=== PATIENT | female | born 1960 | race Caucasian/White ===

== ENCOUNTER → 2017-10-21 | Outpatient (CLI) | payer MEDICAID, OTHER ==
[~2017-10-21] MED LIST: AMLO10TA2 PO; BENA20TA2 PO; CARI350T14 PO; CEFD300C37 PO; CYCL-259 PO; DULO60CA7 PO; FLUT15.88 NS; FURO40TA6 PO; GABA-827 PO; GABA600T2 PO; MECL-76 PO; METF500T4 PO; METH750T2 PO; MORP15TA PO; MORP15TA3 PO; MORP30TA3 PO; MORP60TA PO; NABU750T PO; POTA20TA14 PO; POTASSIUM; PRED5TAB PO; REGADENOSON 0.4 MG/5 ML SYRINGE ONE; RIVA10TA PO; WARF5TAB7 PO
== END | disposition home or self-care (01) ==
LOC: CVU 10:55
PROVIDERS: ATTEND Internal Medicine Cardiovascular Disease
DX: Z01.810 Encounter for preprocedural cardiovascular examination (principal); I07.1 Rheumatic tricuspid insufficiency; I10 Essential (primary) hypertension; E11.9 Type 2 diabetes mellitus without complications
CPT/HCPCS: 78452; 93017; 93306; A9502; J2785

== ENCOUNTER 2017-11-25 17:31 | Emergency (ER) | payer OTHER ==
[~2017-11-25] VITALS: Ht 160 cm; Wt 100.0 kg
[~2017-11-25 17:31] MED LIST changes: -REGADENOSON 0.4 MG/5 ML SYRINGE ONE
[2017-11-25] MEDS ORDERED: ONDANSETRON 2MG/ML, 2ML ONE (18:26)
[2017-11-25] MEDS ORDERED: MORPHINE SULFATE 4 MG/ML, 1ML ONE (18:26)
[2017-11-25] MEDS ORDERED: MORPHINE SULFATE 4 MG/ML, 1ML IVPush PRN (18:30)
[2017-11-25] MEDS ORDERED: ONDANSETRON 2MG/ML, 2ML IVPush ONE (18:30)
[2017-11-25] MEDS ORDERED: SODIUM CHLORIDE FLUSH 10ML SYR IVF ONE (18:30)
[2017-11-25 18:35] LABS: BASOPHILS % (AUTO) 0 % (0-1); EOSINOPHILS # (AUTO) 0.11 x10^3/uL (0-0.4); EOSINOPHILS % (AUTO) 1 % (1-7); LYMPHOCYTES # (AUTO) 1.52 x10^3/uL (1-3.4); LYMPHOCYTES % (AUTO) 18 % (22-44); MD NO; MEAN CORPUSCULAR HEMOGLOBIN 32.2 pg (27.0-34.8); MEAN CORPUSCULAR HGB CONC 33.4 g/dL (32.4-35.8); MEAN CORPUSCULAR VOLUME 96.2 fL (80-100); MEAN PLATELET VOLUME 9.9 fL (7.4-10.4); MONOCYTES # (AUTO) 0.37 x10^3/uL (0.2-0.8); MONOCYTES % (AUTO) 4 % (2-9); NEUTROPHILS # (AUTO) 6.33 x10^3/uL (1.8-6.8); NEUTROPHILS % (AUTO) 76 % (42-75); PLATELET COUNT 221 x10^3/uL (130-400); RED BLOOD COUNT 4.69 x10^6/uL (3.82-5.3); RED CELL DISTRIBUTION WIDTH 14.9 % (9.6-15.2)
[2017-11-25 18:43] LABS: INTERNATIONAL NORMALIZED RATIO 1.97 (0.93-1.1)
[2017-11-25 18:45] LABS: ALBUMIN 3.6 g/dL (3.4-5.0); ANION GAP 9 mmol/L (5-15); CALCIUM 8.8 mg/dL (8.5-10.1); CHLORIDE 108 mmol/L (98-107); CREATININE 1.17 mg/dL (0.55-1.02)
[2017-11-25 19:00] LABS: PROTHROMBIN TIME 20.2 Seconds (9.6-11.5)
[2017-11-25 20:51] VITALS: BP 118/72
== END 2017-11-25 20:54 | disposition home or self-care (01) ==
LOC: ED 20:06
DX: S70.01XA Contusion of right hip, initial encounter (principal); M47.896 Other spondylosis, lumbar region; G89.11 Acute pain due to trauma; E87.5 Hyperkalemia; I10 Essential (primary) hypertension; E11.9 Type 2 diabetes mellitus without complications; J44.9 Chronic obstructive pulmonary disease, unspecified; M54.5 Low back pain; Z86.718 Personal history of other venous thrombosis and embolism; Z79.01 Long term (current) use of anticoagulants
CPT/HCPCS: 36415; 72192; 80048; 82040; 85025; 85610; 85730; 96374; 96375; 99285; J2405

== ENCOUNTER 2018-09-07 14:02 | Observation (INO) | payer OTHER ==
[~2018-09-07] VITALS: Ht 160 cm; Wt 115.7 kg
[~2018-09-07 14:02] MED LIST changes: -AMLO10TA2 PO; +AMLO10TA6 PO; -BENA20TA2 PO; +BENA20TA4 PO; +METF500T17 PO; -METF500T4 PO; +WARF-36 PO; -WARF5TAB7 PO
--- NOTE | 2018-09-07 15:04 | NUR ---
pt transferred to room 24 via WC
--- NOTE | 2018-09-07 15:16 | NUR ---
REPORT FROM ELMIRA PERLA RN. ASSUMED CARE OF PATIENT AT THIS TIME.
[2018-09-07] MEDS ORDERED: ONDANSETRON 2MG/ML, 2ML IVPush ONE (15:30)
[2018-09-07] MEDS ORDERED: MORPHINE SULFATE 4 MG/ML, 1ML IVPush PRN (15:30)
[2018-09-07] MEDS ORDERED: SODIUM CHLORIDE FLUSH 10ML SYR IVF ONE (15:30)
[2018-09-07] MEDS ORDERED: ONDANSETRON 2MG/ML, 2ML ONE (15:41)
[2018-09-07] MEDS ORDERED: MORPHINE SULFATE 4 MG/ML, 1ML ONE (15:41)
--- NOTE | 2018-09-07 16:00 | NUR ---
PATIENT TO XRAY VIA [facility].
[2018-09-07 16:15] LABS: BASOPHILS # (AUTO) 0.02 x10^3/uL (0-0.1); BASOPHILS % (AUTO) 0 % (0-1); EOSINOPHILS # (AUTO) 0.24 x10^3/uL (0-0.4); EOSINOPHILS % (AUTO) 4 % (1-7); LYMPHOCYTES # (AUTO) 1.37 x10^3/uL (1-3.4); LYMPHOCYTES % (AUTO) 22 % (22-44); MD NO; MEAN CORPUSCULAR HEMOGLOBIN 30.5 pg (27.0-34.8); MEAN CORPUSCULAR HGB CONC 32.1 g/dL (32.4-35.8); MEAN CORPUSCULAR VOLUME 94.9 fL (80-100); MEAN PLATELET VOLUME 8.9 fL (7.4-10.4); MONOCYTES # (AUTO) 0.42 x10^3/uL (0.2-0.8); MONOCYTES % (AUTO) 7 % (2-9); NEUTROPHILS # (AUTO) 4.19 x10^3/uL (1.8-6.8); NEUTROPHILS % (AUTO) 67 % (42-75); PLATELET COUNT 236 x10^3/uL (130-400); RED BLOOD COUNT 4.35 x10^6/uL (3.82-5.3); RED CELL DISTRIBUTION WIDTH 16.4 % (9.6-15.2)
[2018-09-07 16:18] LABS: ALBUMIN 3.4 g/dL (3.4-5.0); ANION GAP 6 mmol/L (5-15); CALCIUM 9.2 mg/dL (8.5-10.1); CHLORIDE 109 mmol/L (98-107); CREATININE 1.28 mg/dL (0.55-1.02)
--- NOTE | 2018-09-07 16:38 | NUR ---
PATIENT BACK FROM XRAY, STRAIGHT CATH PERFORMED, CLEAN SAMPLE COLLECTED, PATIENT HAD SMALL AMOUNT OF VAGINAL BLEEDING DURING PROCEDURE, UA COLLECTED AND WALKED TO LAB. AWAITING RESULTS.
[2018-09-07 16:52] LABS: MICROSCOPIC AUTO
[2018-09-07 16:56] LABS: CULTURE INDICATED? YES
--- NOTE | 2018-09-07 16:59 | NUR ---
RESULTS BACK, CHART UP FOR RECHECK.
--- NOTE | 2018-09-07 17:12 | NUR ---
VS UPDATED IN CHART, PATIENT A+OX4, MD AND PA AT BEDSIDE DISCUSSING NEED FOR ADMIT, PATIENT UNSURE IF WANTING TO BE ADMITTED.
--- NOTE | 2018-09-07 17:22 | NUR ---
PATIENT TO BE ADMIT, AWAITING ADMIT ORDER FROM ERP.
[2018-09-07] MEDS ORDERED: WARF10TA43 PO (17:33)
[2018-09-07] MEDS ORDERED: POTA10TA31 PO (17:35)
[2018-09-07] MEDS ORDERED: MORPHINE (17:37)
[2018-09-07] MEDS ORDERED: OXYC-307 PO (17:38)
[2018-09-07] MEDS ORDERED: TIZA4TAB PO (17:39)
[2018-09-07] MEDS ORDERED: CARI350T14 PO (17:39)
[2018-09-07] MEDS ORDERED: ATOR-2 PO (17:40)
[2018-09-07] MEDS ORDERED: CETI10TA18 PO (17:41)
[2018-09-07] MEDS ORDERED: DOCU-131 PO (17:41)
[2018-09-07] MEDS ORDERED: POLY17PO5 PO (17:42)
[2018-09-07] MEDS ORDERED: OMEG1CAP57 PO (17:42)
[2018-09-07] MEDS ORDERED: ASCO10004 PO (17:43)
[2018-09-07] MEDS ORDERED: VITA400C9 PO (17:43)
[2018-09-07] MEDS ORDERED: D-MA50PO PO (17:44)
[2018-09-07] MEDS ORDERED: D MANNOSE PO SCH (18:00)
[2018-09-07] MEDS ORDERED: BISACODYL 10 MG SUPP PR PRN (18:00)
[2018-09-07] MEDS ORDERED: TIZANIDINE 4MG TABLET PO SCH (18:00)
[2018-09-07] MEDS ORDERED: ONDANSETRON ODT 4 MG PO PRN (18:00)
[2018-09-07] MEDS ORDERED: ACETAMINOPHEN 325 MG TABLET PO PRN (18:00)
[2018-09-07] MEDS ORDERED: CARISOPRODOL 350 MG TABLET PO SCH (18:00)
--- NOTE | 2018-09-07 18:01 | NUR ---
PATIENT IN MRI.
[2018-09-07 18:18] LABS: INTERNATIONAL NORMALIZED RATIO 2.74 (0.93-1.1); PROTHROMBIN TIME 27.9 Seconds (9.6-11.5)
--- NOTE | 2018-09-07 18:28 | NUR ---
REPORT TO PONCE WEINBERG. PATIENT IN MRI AT THIS TIME, WILL TRANSFER WHEN BACK.
--- NOTE | 2018-09-07 18:51 | NUR ---
RECEIVED REPORT FROM PONCE LOUIS. PT. IS OUT OF ROOM FOR MRI; PT. TO GO TO FLOOR ON RETURN FROM MRI. REPORT WAS ALREADY CALLED TO FLOOR.
[2018-09-07] MEDS ORDERED: PLEASE ENTER HEIGHT AND WEIGHT MC SCH (19:00)
--- NOTE | 2018-09-07 19:08 | NUR ---
PATIENT BACK FROM MRI, TRANSPORT CALLED.
[2018-09-07] MEDS ORDERED: POLYETHYLENE GLYCOL 17 GM PACKET PO PRN (20:30)
[2018-09-07] MEDS ORDERED: TIZANIDINE 4MG TABLET PO PRN (20:30)
[2018-09-07] MEDS ORDERED: metFORMIN 500 MG TABLET PO SCH (21:00)
[2018-09-07] MEDS ORDERED: CARISOPRODOL 350 MG TABLET PO PRN (21:00)
[2018-09-07] MEDS: GABAPENTIN 300 MG CAPSULE PO SCH (22:09)
[2018-09-07] MEDS: LIDODERM 5% PATCH TD SCH (22:11)
[2018-09-07] MEDS: SODIUM CHLORIDE FLUSH 10ML SYR IVF SCH (22:11)
[2018-09-07] MEDS: WARFARIN 10 MG TABLET PO-COUM SCH (22:11)
[2018-09-07] MEDS: ATORVASTATIN 80 MG TABLET PO SCH (22:11)
[2018-09-07] MEDS: OXYcodone/APAP 10/325MG TABLET PO SCH (22:12)
[2018-09-07] MEDS: ASCORBIC ACID 500 MG TABLET PO SCH (22:12)
[2018-09-08 03:00] VITALS: BP 95/56
[2018-09-08] MEDS: GABAPENTIN 300 MG CAPSULE PO SCH ×3 (05:08→21:55)
[2018-09-08 06:17] LABS: BASOPHILS # (AUTO) 0.03 x10^3/uL (0-0.1); BASOPHILS % (AUTO) 1 % (0-1); EOSINOPHILS # (AUTO) 0.22 x10^3/uL (0-0.4); EOSINOPHILS % (AUTO) 4 % (1-7); LYMPHOCYTES % (AUTO) 26 % (22-44); MD NO; MEAN CORPUSCULAR HEMOGLOBIN 30.9 pg (27.0-34.8); MEAN CORPUSCULAR HGB CONC 32.5 g/dL (32.4-35.8); MEAN CORPUSCULAR VOLUME 95.2 fL (80-100); MEAN PLATELET VOLUME 9.2 fL (7.4-10.4); MONOCYTES # (AUTO) 0.42 x10^3/uL (0.2-0.8); MONOCYTES % (AUTO) 7 % (2-9); NEUTROPHILS # (AUTO) 3.56 x10^3/uL (1.8-6.8); NEUTROPHILS % (AUTO) 62 % (42-75); PLATELET COUNT 226 x10^3/uL (130-400); RED BLOOD COUNT 3.99 x10^6/uL (3.82-5.3); RED CELL DISTRIBUTION WIDTH 16.3 % (9.6-15.2)
[2018-09-08 06:21] LABS: ALBUMIN 3.2 g/dL (3.4-5.0); ANION GAP 5 mmol/L (5-15); CALCIUM 8.2 mg/dL (8.5-10.1); CHLORIDE 110 mmol/L (98-107)
[2018-09-08 06:25] LABS: ALANINE AMINOTRANSFERASE 22 U/L (12-78); ALKALINE PHOSPHATASE 81 U/L (45-117); BILIRUBIN,TOTAL 0.3 mg/dL (0.2-1.0); CREATININE 1.14 mg/dL (0.55-1.02); TOTAL PROTEIN 6.4 g/dL (6.4-8.2)
[2018-09-08 07:39] VITALS: BP 108/55
[2018-09-08] MEDS: VITAMIN E 400 UNITS CAPSULE PO SCH (08:56)
[2018-09-08] MEDS: OMEGA-3/FISH OIL CAPSULE PO SCH (08:57)
[2018-09-08] MEDS: BENAZEPRIL 20 MG TABLET PO SCH (08:57)
[2018-09-08] MEDS: DULOXETINE 30 MG CAPSULE.DR PO SCH (08:57)
[2018-09-08] MEDS: DOCUSATE 100 MG CAPSULE PO SCH (08:57)
[2018-09-08] MEDS: AMLODIPINE 10 MG TAB PO SCH (08:57)
[2018-09-08] MEDS: POTASSIUM CHLORIDE 10 MEQ TABLET.ER PO SCH (08:57)
[2018-09-08] MEDS: OXYcodone/APAP 10/325MG TABLET PO SCH ×2 (08:57→21:37)
[2018-09-08] MEDS: CETIRIZINE 10 MG TABLET PO SCH (08:57)
[2018-09-08] MEDS: FUROSEMIDE 40 MG TABLET PO SCH (08:58)
[2018-09-08] MEDS: SODIUM CHLORIDE FLUSH 10ML SYR IVF SCH ×2 (08:58→21:36)
[2018-09-08] MEDS: metFORMIN 500 MG TABLET PO SCH ×2 (08:58→17:18)
[2018-09-08 13:52] VITALS: BP 95/63
[2018-09-08] MEDS ORDERED: methylPREDNISolone 4mg DOSE PACK PO SCH (15:00)
[2018-09-08 15:39] LABS: INTERNATIONAL NORMALIZED RATIO 2.77 (0.93-1.1); PROTHROMBIN TIME 28.2 Seconds (9.6-11.5)
[2018-09-08] MEDS: WARFARIN 10 MG TABLET PO-COUM SCH (17:18)
[2018-09-08 19:43] VITALS: BP 130/68
[2018-09-08] MEDS: ASCORBIC ACID 500 MG TABLET PO SCH (21:37)
[2018-09-08] MEDS: ATORVASTATIN 80 MG TABLET PO SCH (21:37)
[2018-09-08] MEDS: LIDODERM 5% PATCH TD SCH (21:43)
[2018-09-09 04:06] VITALS: BP 142/70
[2018-09-09] MEDS: GABAPENTIN 300 MG CAPSULE PO SCH ×3 (04:14→15:51)
[2018-09-09 05:38] LABS: INTERNATIONAL NORMALIZED RATIO 2.99 (0.93-1.1); PROTHROMBIN TIME 30.4 Seconds (9.6-11.5)
[2018-09-09 07:01] VITALS: BP 149/70
[2018-09-09] MEDS: POTASSIUM CHLORIDE 10 MEQ TABLET.ER PO SCH (08:57)
[2018-09-09] MEDS: DULOXETINE 30 MG CAPSULE.DR PO SCH (08:57)
[2018-09-09] MEDS: DOCUSATE 100 MG CAPSULE PO SCH (08:57)
[2018-09-09] MEDS: VITAMIN E 400 UNITS CAPSULE PO SCH (08:57)
[2018-09-09] MEDS: OMEGA-3/FISH OIL CAPSULE PO SCH (08:58)
[2018-09-09] MEDS: OXYcodone/APAP 10/325MG TABLET PO SCH (08:58)
[2018-09-09] MEDS: CETIRIZINE 10 MG TABLET PO SCH (08:58)
[2018-09-09] MEDS: AMLODIPINE 10 MG TAB PO SCH (08:58)
[2018-09-09] MEDS: SODIUM CHLORIDE FLUSH 10ML SYR IVF SCH (08:59)
[2018-09-09] MEDS: metFORMIN 500 MG TABLET PO SCH (08:59)
[2018-09-09] MEDS: FUROSEMIDE 40 MG TABLET PO SCH (08:59)
[2018-09-09] MEDS: BENAZEPRIL 20 MG TABLET PO SCH (08:59)
[2018-09-09 12:03] VITALS: BP 119/78
[2018-09-09] MEDS ORDERED: METH4TAB2 PO (17:01)
== END 2018-09-09 16:48 | disposition home or self-care (01) ==
LOC: ED 17:03 → INTOOBSV 17:42 → EDIP 17:42 → 3NW 18:43
PROVIDERS: ADMIT Internal Medicine; ATTEND Internal Medicine
DX: M51.36 Other intervertebral disc degeneration, lumbar region (principal); F11.20 Opioid dependence, uncomplicated; M54.30 Sciatica, unspecified side; F32.9 Major depressive disorder, single episode, unspecified; E66.01 Morbid (severe) obesity due to excess calories; G89.29 Other chronic pain; J44.9 Chronic obstructive pulmonary disease, unspecified; G62.9 Polyneuropathy, unspecified; E10.22 Type 1 diabetes mellitus with diabetic chronic kidney disease; E10.65 Type 1 diabetes mellitus with hyperglycemia; I12.9 Hypertensive chronic kidney disease with stage 1 through stage 4 chronic kidney disease, or unspecified chronic kidney disease; I87.2 Venous insufficiency (chronic) (peripheral); M21.379 Foot drop, unspecified foot; N18.9 Chronic kidney disease, unspecified; Z82.3 Family history of stroke; Z87.891 Personal history of nicotine dependence; Z82.49 Family history of ischemic heart disease and other diseases of the circulatory system; Z86.718 Personal history of other venous thrombosis and embolism; Z90.89 Acquired absence of other organs; Z91.040 Latex allergy status; Z99.3 Dependence on wheelchair
CPT/HCPCS: 36415; 72110; 72148; 72195; 80048; 80053; 81001; 82040; 85025; 85610; 87086; 96374; 96375; 97163; 97530; 99284; G0378; G8978; G8979; G8990; J2405; J7509

== ENCOUNTER 2019-12-09 10:52 | Outpatient (CLI) | payer MEDICARE ==
[~2019-12-09 10:52] MED LIST changes: -AMLO10TA6 PO; +AMLO10TA8 PO; +ASCO10004 PO; +ATOR-2 PO; -BENA20TA4 PO; +BENA20TA54 PO; +CETI10TA18 PO; +D-MA50PO PO; +DOCU-131 PO; +FLUT15.845 NS; -FLUT15.88 NS; -GABA600T2 PO; +GABA600T7 PO; +METH4TAB2 PO; +MORP-29 PO; +MORP-30 PO; -MORP15TA3 PO; -MORP30TA3 PO; -MORP60TA PO; +MORP60TA63 PO; +MORPHINE; +OMEG1CAP57 PO; +OXYC-307 PO; +POLY17PO5 PO; +POTA10TA31 PO; -RIVA10TA PO; +RIVA10TA2 PO; +TIZA4TAB2 PO; +VITA-73 PO; +WARF10TA43 PO
== END 2019-12-09 23:59 | disposition home or self-care (01) ==
LOC: WOUND 10:52
PROVIDERS: ATTEND Podiatrist Foot & Ankle Surgery
DX: E11.621 Type 2 diabetes mellitus with foot ulcer (principal); L97.522 Non-pressure chronic ulcer of other part of left foot with fat layer exposed; E11.40 Type 2 diabetes mellitus with diabetic neuropathy, unspecified; E11.51 Type 2 diabetes mellitus with diabetic peripheral angiopathy without gangrene; E11.69 Type 2 diabetes mellitus with other specified complication; M86.172 Other acute osteomyelitis, left ankle and foot; I10 Essential (primary) hypertension; J44.9 Chronic obstructive pulmonary disease, unspecified; Z87.891 Personal history of nicotine dependence; Z79.01 Long term (current) use of anticoagulants; Z79.84 Long term (current) use of oral hypoglycemic drugs
CPT/HCPCS: 11042; 87070; 87205; 99214

== ENCOUNTER 2019-12-09 13:10 | Outpatient (CLI) | payer MEDICARE | END 2019-12-09 23:59 | disposition home or self-care (01) | LOC: RAD 13:10 | PROVIDERS: ATTEND Podiatrist Foot & Ankle Surgery | DX: M86.172 Other acute osteomyelitis, left ankle and foot (principal); I73.89 Other specified peripheral vascular diseases; E11.621 Type 2 diabetes mellitus with foot ulcer; L97.529 Non-pressure chronic ulcer of other part of left foot with unspecified severity ==

== ENCOUNTER → 2019-12-16 | Outpatient (CLI) | payer MEDICARE | END | disposition home or self-care (01) | LOC: WOUND 14:30 | PROVIDERS: ATTEND Podiatrist Foot & Ankle Surgery | DX: E11.621 Type 2 diabetes mellitus with foot ulcer (principal); L97.522 Non-pressure chronic ulcer of other part of left foot with fat layer exposed; E11.40 Type 2 diabetes mellitus with diabetic neuropathy, unspecified; E11.51 Type 2 diabetes mellitus with diabetic peripheral angiopathy without gangrene; E11.69 Type 2 diabetes mellitus with other specified complication; M86.172 Other acute osteomyelitis, left ankle and foot; I10 Essential (primary) hypertension; J44.9 Chronic obstructive pulmonary disease, unspecified; Z87.891 Personal history of nicotine dependence; Z79.01 Long term (current) use of anticoagulants; Z79.84 Long term (current) use of oral hypoglycemic drugs; Z91.040 Latex allergy status | CPT/HCPCS: 11042 ==

== ENCOUNTER → 2019-12-16 | Outpatient (CLI) | payer MEDICARE ==
[~2019-12-16] MED LIST changes: +GADOTERATE 7.5 MMOL/15 ML SYR ONE
== END | disposition home or self-care (01) ==
LOC: RAD 16:21
PROVIDERS: ATTEND Podiatrist Foot & Ankle Surgery
DX: M86.172 Other acute osteomyelitis, left ankle and foot (principal); M79.89 Other specified soft tissue disorders; L97.522 Non-pressure chronic ulcer of other part of left foot with fat layer exposed
CPT/HCPCS: 73720; A9575

== ENCOUNTER → 2019-12-23 | Outpatient (CLI) | payer MEDICARE ==
[~2019-12-23] MED LIST changes: -GADOTERATE 7.5 MMOL/15 ML SYR ONE
== END | disposition home or self-care (01) ==
LOC: WOUND 15:04
PROVIDERS: ATTEND Podiatrist Foot & Ankle Surgery
DX: E11.621 Type 2 diabetes mellitus with foot ulcer (principal); L97.522 Non-pressure chronic ulcer of other part of left foot with fat layer exposed; E11.69 Type 2 diabetes mellitus with other specified complication; M86.172 Other acute osteomyelitis, left ankle and foot; E11.40 Type 2 diabetes mellitus with diabetic neuropathy, unspecified; E11.51 Type 2 diabetes mellitus with diabetic peripheral angiopathy without gangrene; I10 Essential (primary) hypertension; M19.90 Unspecified osteoarthritis, unspecified site; M79.89 Other specified soft tissue disorders; J44.9 Chronic obstructive pulmonary disease, unspecified; Z79.01 Long term (current) use of anticoagulants; Z79.84 Long term (current) use of oral hypoglycemic drugs; Z87.891 Personal history of nicotine dependence
CPT/HCPCS: 11042

== ENCOUNTER → 2019-12-30 | Outpatient (CLI) | payer MEDICARE | END | disposition home or self-care (01) | LOC: WOUND 15:17 | PROVIDERS: ATTEND Podiatrist Foot & Ankle Surgery | DX: E11.621 Type 2 diabetes mellitus with foot ulcer (principal); L97.522 Non-pressure chronic ulcer of other part of left foot with fat layer exposed; E11.69 Type 2 diabetes mellitus with other specified complication; M86.172 Other acute osteomyelitis, left ankle and foot; E11.40 Type 2 diabetes mellitus with diabetic neuropathy, unspecified; E11.51 Type 2 diabetes mellitus with diabetic peripheral angiopathy without gangrene; I10 Essential (primary) hypertension; M19.90 Unspecified osteoarthritis, unspecified site; M79.89 Other specified soft tissue disorders; J44.9 Chronic obstructive pulmonary disease, unspecified; Z79.01 Long term (current) use of anticoagulants; Z79.84 Long term (current) use of oral hypoglycemic drugs; Z87.891 Personal history of nicotine dependence; Z91.040 Latex allergy status | CPT/HCPCS: 97597 ==

== ENCOUNTER 2020-01-06 14:43 | Outpatient (CLI) | payer MEDICARE | END 2020-01-06 23:59 | disposition home or self-care (01) | LOC: WOUND 14:43 | PROVIDERS: ATTEND Podiatrist Foot & Ankle Surgery | DX: E11.621 Type 2 diabetes mellitus with foot ulcer (principal); L97.524 Non-pressure chronic ulcer of other part of left foot with necrosis of bone; E11.69 Type 2 diabetes mellitus with other specified complication; M86.172 Other acute osteomyelitis, left ankle and foot; E11.40 Type 2 diabetes mellitus with diabetic neuropathy, unspecified; E11.51 Type 2 diabetes mellitus with diabetic peripheral angiopathy without gangrene; I10 Essential (primary) hypertension; M19.90 Unspecified osteoarthritis, unspecified site; M79.89 Other specified soft tissue disorders; J44.9 Chronic obstructive pulmonary disease, unspecified; Z79.01 Long term (current) use of anticoagulants; Z79.84 Long term (current) use of oral hypoglycemic drugs; Z87.891 Personal history of nicotine dependence; Z91.040 Latex allergy status | CPT/HCPCS: 97597 ==

== ENCOUNTER → 2020-01-11 | Outpatient (CLI) | payer MEDICARE | END | disposition home or self-care (01) | LOC: WOUND 14:54 | PROVIDERS: ATTEND Podiatrist Foot & Ankle Surgery | DX: E11.621 Type 2 diabetes mellitus with foot ulcer (principal); L97.524 Non-pressure chronic ulcer of other part of left foot with necrosis of bone; E11.69 Type 2 diabetes mellitus with other specified complication; M86.172 Other acute osteomyelitis, left ankle and foot; E11.40 Type 2 diabetes mellitus with diabetic neuropathy, unspecified; E11.51 Type 2 diabetes mellitus with diabetic peripheral angiopathy without gangrene; I10 Essential (primary) hypertension; M19.90 Unspecified osteoarthritis, unspecified site; M79.89 Other specified soft tissue disorders; J44.9 Chronic obstructive pulmonary disease, unspecified; Z79.01 Long term (current) use of anticoagulants; Z79.84 Long term (current) use of oral hypoglycemic drugs; Z87.891 Personal history of nicotine dependence; Z91.040 Latex allergy status | CPT/HCPCS: G0463 ==

== ENCOUNTER → 2020-01-20 | Outpatient (CLI) | payer MEDICARE | END | disposition home or self-care (01) | LOC: WOUND 11:00 | PROVIDERS: ATTEND Podiatrist Foot & Ankle Surgery | DX: E11.621 Type 2 diabetes mellitus with foot ulcer (principal); L97.524 Non-pressure chronic ulcer of other part of left foot with necrosis of bone; E11.69 Type 2 diabetes mellitus with other specified complication; M86.172 Other acute osteomyelitis, left ankle and foot; E11.40 Type 2 diabetes mellitus with diabetic neuropathy, unspecified; E11.51 Type 2 diabetes mellitus with diabetic peripheral angiopathy without gangrene; I10 Essential (primary) hypertension; M19.90 Unspecified osteoarthritis, unspecified site; M79.89 Other specified soft tissue disorders; J44.9 Chronic obstructive pulmonary disease, unspecified; Z79.01 Long term (current) use of anticoagulants; Z79.84 Long term (current) use of oral hypoglycemic drugs; Z87.891 Personal history of nicotine dependence; Z91.040 Latex allergy status | CPT/HCPCS: 97597 ==

== ENCOUNTER → 2020-02-08 | Outpatient (CLI) | payer MEDICARE ==
[~2020-02-08] MED LIST changes: +APIX5TAB PO; +CALC1CAP8 PO; +OXYB5TAB10 PO; +OXYC10TA6 PO
== END | disposition home or self-care (01) ==
LOC: STAR 09:17
PROVIDERS: ATTEND Podiatrist Foot & Ankle Surgery
DX: Z01.818 Encounter for other preprocedural examination (principal); Z11.59 Encounter for screening for other viral diseases; M86.9 Osteomyelitis, unspecified; I45.2 Bifascicular block
CPT/HCPCS: 93005; U0001

== ENCOUNTER 2020-02-11 06:13 | Day surgery (SDC) | payer MEDICARE ==
[2020-02-08 10:53] LABS: ALBUMIN 3.5 g/dL (3.4-5.0); ANION GAP 6 mmol/L (5-15); CALCIUM 9.7 mg/dL (8.5-10.1); CHLORIDE 108 mmol/L (98-107)
[2020-02-08 10:57] LABS: ALANINE AMINOTRANSFERASE 24 U/L (12-78); ALKALINE PHOSPHATASE 92 U/L (45-117); BILIRUBIN,TOTAL 0.5 mg/dL (0.2-1.0); CREATININE 1.07 mg/dL (0.55-1.02); TOTAL PROTEIN 7.3 g/dL (6.4-8.2)
[~2020-02-11] VITALS: Ht 160 cm; Wt 114.0 kg
[~2020-02-11 06:13] MED LIST changes: +BUPIVACAINE/PF-EPI 0.5% 1:200K ONE
[2020-02-11] MEDS ORDERED: CHLORHEXIDINE 15 ML UDC ONE (06:21)
[2020-02-11] MEDS ORDERED: LACTATED RINGERS 1,000 ML IV SCH (06:43)
[2020-02-11 06:45] VITALS: BP 121/56
[2020-02-11] MEDS ORDERED: PROPOFOL 10 MG/ML, 20ML ONE (06:45)
[2020-02-11] MEDS ORDERED: ONDANSETRON 2MG/ML, 2ML ONE (06:46)
[2020-02-11] MEDS ORDERED: FENTANYL PF 100 MCG/2ML ONE (06:46)
[2020-02-11] MEDS ORDERED: DEXAMETHASONE 4 MG/ML, 1ML ONE (06:46)
[2020-02-11] MEDS ORDERED: MIDAZOLAM 1 MG/ML, 2ML ONE (06:46)
[2020-02-11] MEDS ORDERED: CEFAZOLIN 1,000 MG ONE ×2 (06:46)
[2020-02-11] MEDS ORDERED: CHLORHEXIDINE 15 ML UDC MM ONE (07:00)
[2020-02-11] MEDS ORDERED: FENTANYL PF 100 MCG/2ML IV PRN (08:00)
[2020-02-11] MEDS ORDERED: ONDANSETRON 2MG/ML, 2ML IVPush PRN (08:00)
== END 2020-02-11 09:45 | disposition home or self-care (01) ==
LOC: OUT 06:13
PROVIDERS: ATTEND Podiatrist Foot & Ankle Surgery
DX: L03.032 Cellulitis of left toe (principal); E11.69 Type 2 diabetes mellitus with other specified complication; M86.672 Other chronic osteomyelitis, left ankle and foot; E11.42 Type 2 diabetes mellitus with diabetic polyneuropathy; J44.9 Chronic obstructive pulmonary disease, unspecified; I50.9 Heart failure, unspecified; G47.33 Obstructive sleep apnea (adult) (pediatric); E66.01 Morbid (severe) obesity due to excess calories; Z99.81 Dependence on supplemental oxygen; Z91.040 Latex allergy status
CPT/HCPCS: 20245; 36415; 80053; 82962; 87070; 87075; 87102; 87205; 88304; 88311; 88342; J2704; J3010; J7120; J0690; J1100; J2250; J2405

== ENCOUNTER 2020-06-29 12:29 | Emergency (ER) | payer MEDICARE ==
[~2020-06-29] VITALS: Ht 160 cm; Wt 115.0 kg
[~2020-06-29 12:29] MED LIST changes: +ASCO100018 PO; -ASCO10004 PO; -BUPIVACAINE/PF-EPI 0.5% 1:200K ONE
[2020-06-29 13:20] LABS: BASOPHILS % (AUTO) 1 % (0-1); EOSINOPHILS % (AUTO) 5 % (1-7); LYMPHOCYTES % (AUTO) 17 % (22-44); MEAN CORPUSCULAR HGB CONC 30.9 g/dL (32.4-35.8); MEAN PLATELET VOLUME 8.7 fL (7.4-10.4); MONOCYTES % (AUTO) 7 % (2-9); NEUTROPHILS % (AUTO) 70 % (42-75); PLATELET COUNT 234 x10^3/uL (130-400); RED CELL DISTRIBUTION WIDTH 18.9 % (9.6-15.2)
[2020-06-29 13:22] LABS: MD NO
[2020-06-29 13:31] LABS: ALANINE AMINOTRANSFERASE 21 U/L (12-78); ALBUMIN 3.1 g/dL (3.4-5.0); ANION GAP 5 mmol/L (5-15); CALCIUM 9.4 mg/dL (8.5-10.1); CHLORIDE 107 mmol/L (98-107); CREATININE 1.62 mg/dL (0.55-1.02)
[2020-06-29 13:33] LABS: ALKALINE PHOSPHATASE 102 U/L (45-117); BILIRUBIN,TOTAL 0.4 mg/dL (0.2-1.0); TOTAL PROTEIN 7.1 g/dL (6.4-8.2)
--- NOTE | 2020-06-29 13:40 | NUR ---
RADIOLOGY ASSISTANT: PT TO ROOM FROM LOBBY VIA W/C
[2020-06-29] MEDS ORDERED: SODIUM CHLORIDE FLUSH 10ML SYR IVF ONE (14:00)
[2020-06-29] MEDS ORDERED: SODIUM CHLORIDE 0.9% 1,000ML IVBOLUS ONE (14:00)
--- NOTE | 2020-06-29 14:40 | NUR ---
THIS RN AT BEDSIDE FOR STRAIGHT CATH URINE COLLECTION.
[2020-06-29 15:15] LABS: MICROSCOPIC NOT IND
[2020-06-29 15:31] VITALS: BP 104/53
--- NOTE | 2020-06-29 15:59 | NUR ---
DR WEISS AT BEDSIDE, D/C POC DISCUSSED WITH PT AND QUESTIONS ANSWERED.
--- NOTE | 2020-06-29 16:21 | NUR ---
Patient/Caregiver given discharge instructions and they have confirmed that they understand the instructions. D/C IN PERSONAL WHEELCHAIR .
== END 2020-06-29 16:20 | disposition home or self-care (01) ==
LOC: ED 13:08
DX: G89.29 Other chronic pain (principal); M54.5 Low back pain; E86.0 Dehydration; B35.6 Tinea cruris; R10.9 Unspecified abdominal pain; R30.0 Dysuria; I10 Essential (primary) hypertension; E11.9 Type 2 diabetes mellitus without complications
CPT/HCPCS: 36415; 74176; 80053; 81003; 84443; 85025; 96360; 99284; J7030

== ENCOUNTER 2021-02-19 11:17 | Emergency (ER) | payer MEDICARE ==
[~2021-02-19] VITALS: Ht 160 cm; Wt 126.1 kg
[~2021-02-19 11:17] MED LIST changes: +AMLO-211 PO; -AMLO10TA8 PO; +CARI-389 PO; -CARI350T14 PO; +CLOT15CR6 TP; -CYCL-259 PO; +CYCL10TA2 PO; +FLUT1BLS3 IH; +METH-640 PO; -METH750T2 PO; -NABU750T PO; +NABU750T11 PO; -OXYC-307 PO; +OXYC-380 PO; +VITA-66 PO; -VITA-73 PO
--- NOTE | 2021-02-19 11:45 | NUR ---
PT BIB DAUGHTER VIA POV. PER PT INFECTION IN LEFT FOOT ON 1ST AND 2ND TOES. PT STATES SHE WAS HOSPITALIZED AT [facility], RELEASED LAST FRIDAY AND WAS TAKING ORDERED KEFLEX, BUT INFECTION HAS YET TO CLEAR UP AND SHE TOOK HER LAST DOSE TODAY. PT ALSO STATES SHE HAS HX DM. PT RESTING IN [facility], REFUSING TO PUT GOWN ON, NADN AT THIS TIME, WCTM.
[2021-02-19 13:35] LABS: BASOPHILS % (AUTO) 2 % (0-1); EOSINOPHILS % (AUTO) 4 % (1-7); LYMPHOCYTES % (AUTO) 24 % (22-44); MEAN CORPUSCULAR HEMOGLOBIN 30.2 pg (27.0-34.8); MEAN CORPUSCULAR HGB CONC 32.5 g/dL (32.4-35.8); MEAN PLATELET VOLUME 8.3 fL (7.4-10.4); MONOCYTES % (AUTO) 7 % (2-9); NEUTROPHILS % (AUTO) 64 % (42-75); PLATELET COUNT 351 x10^3/uL (130-400); RED BLOOD COUNT 4.22 x10^6/uL (3.82-5.3); RED CELL DISTRIBUTION WIDTH 17.1 % (9.6-15.2)
[2021-02-19 13:37] LABS: MD NO
[2021-02-19 13:45] LABS: ANION GAP 7 mmol/L (5-15); CALCIUM 9.9 mg/dL (8.5-10.1); CHLORIDE 108 mmol/L (98-107); CREATININE 1.26 mg/dL (0.55-1.02)
--- NOTE | 2021-02-19 14:06 | NUR ---
PT LAYING FLAT IN BED, HOB RAISED FOR PT COMFORT. CHUX PAD PLACED UNDER LEGS FOR WOUND PROTECTION. SIDE RAILS UP, CALL LIGHT IN REACH. FRIEND AT BEDSIDE. CURRENTLY AWAITING RECORDS FROM [facility].
[2021-02-19] MEDS ORDERED: TRAM50TA2 PO (14:16)
[2021-02-19] MEDS ORDERED: APIX5TAB PO (14:16)
--- NOTE | 2021-02-19 14:16 | NUR ---
PT SPO2 LOWERING WHEN TALKING, RN ASKS PT ABOUT ANY SOB, PT REPORTS SHE'S NORMALLY ON 3L NC FOR COPD. PT PLACED ON NC AT THIS TIME. SIDE RAILS UP, CALL LIGHT IN REACH.
[2021-02-19 15:12] VITALS: BP 126/66
== END 2021-02-19 15:20 | disposition home or self-care (01) ==
LOC: ED 15:00
DX: L03.116 Cellulitis of left lower limb (principal); E11.621 Type 2 diabetes mellitus with foot ulcer; Z48.01 Encounter for change or removal of surgical wound dressing; I10 Essential (primary) hypertension; J44.9 Chronic obstructive pulmonary disease, unspecified; Z86.718 Personal history of other venous thrombosis and embolism
CPT/HCPCS: 36415; 80048; 85025; 99284